=== PATIENT | female | born 1995 | race African-American/Black ===

== ENCOUNTER 2022-05-02 23:48 | Emergency (ER) | payer BC, OTHER ==
[~2022-05-02] VITALS: Ht 170.2 cm; Wt 97.5 kg
[2022-05-02 23:52] VITALS: BP 127/61
--- NOTE | 2022-05-03 00:04 | NUR ---
PT WAS DISCHARGED TO [facility] IN CUSTODY IN STABLE CONDITION
== END 2022-05-03 00:05 ==
LOC: ER 23:50
DX: O26.91 Pregnancy related conditions, unspecified, first trimester (principal); Z60.2 Problems related to living alone; Z3A.11 11 weeks gestation of pregnancy